=== PATIENT | male | born 1970 | race Caucasian/White ===

== ENCOUNTER 2017-06-19 09:12 | Emergency (ER) | payer BC, OTHER ==
[~2017-06-19] VITALS: Ht 180.3 cm; Wt 84.1 kg
[2017-06-19 09:12] VITALS: BP 168/112
[2017-06-19] MEDS ORDERED: PATA0.2S (09:26)
[2017-06-19] MEDS ORDERED: KETOROLAC 60 MG/2 ML VIAL (J1885) As Ordered ONE (09:28)
[2017-06-19] MEDS ORDERED: KETOROLAC 60 MG/2 ML VIAL (J1885) IM ONE (09:30)
--- NOTE | 2017-06-19 10:04 | REP ---
PA and lateral chest: Comparison is 02/16/2012. The lung hull are clear. The cardiac size is normal The gray, mediastinum, and bony thorax are unremarkable. Impression: Negative PA and lateral chest. Signed by Vince Harding MD 06/19/2017 09:55 A
[2017-06-19] MEDS ORDERED: NORCOTAB PO (10:19)
[2017-06-19] MEDS ORDERED: NORCO, ANEXSIA 5/325MG TABLET (HYDROcodone/ACETAMINOPHEN) PO ONE (10:30)
== END 2017-06-19 10:50 | disposition home or self-care (01) ==
LOC: M ED 09:12
DX: R07.9 Chest pain, unspecified (principal)
CPT/HCPCS: 71020; 96372; 99282; J1885

== ENCOUNTER 2017-08-05 11:58 | Emergency (ER) | payer OTHER ==
[~2017-08-05] VITALS: Ht 180.3 cm; Wt 86.4 kg
[~2017-08-05 11:58] MED LIST: NORCOTAB PO; PATA0.2S
[2017-08-05] MEDS ORDERED: MORPHINE 4 MG/ML 1ML SYRINGE As Ordered ONE (12:14)
[2017-08-05] MEDS ORDERED: ONDANSETRON 4MG/2ML VIAL (J2405) As Ordered ONE (12:14)
[2017-08-05] MEDS ORDERED: NS 1,000 ML IV ONE (12:15)
[2017-08-05] MEDS ORDERED: MORPHINE 4 MG/ML 1ML SYRINGE IV ONE ×2 (12:15→13:00)
[2017-08-05] MEDS ORDERED: ONDANSETRON 4MG/2ML VIAL (J2405) IV ONE ×2 (12:15→14:45)
[2017-08-05 12:35] LABS: BASO # 0.1 10^3/uL (0.0-0.2); BASO % 0.5 % (0.0-1.0); EOS # 0.1 10^3/uL (0.0-0.50); EOS % 0.5 % (0.0-3.0); IMMATURE GRANULOCYTE % 0.4 % (0-0); LYMPH % 10.5 % (24.0-44.0); MEAN CORPUSCULAR HEMOGLOBIN 31.5 pg (27.0-33.0); MEAN CORPUSCULAR HGB CONC 33.7 g/dl (32.0-36.5); MEAN CORPUSCULAR VOLUME 93.4 fl (80.0-96.0); MONO # 1.4 10^3/uL (0.0-0.8); MONO % 7.4 % (0.0-5.0); NEUTROPHILS # 15.1 10^3/uL (1.8-7.7); NEUTROPHILS % 80.7 % (36.0-66.0); PLATELET COUNT, AUTOMATED 280 10^3/uL (150-450); RED CELL DISTRIBUTION WIDTH 12.6 % (11.5-14.5); WHITE BLOOD COUNT 18.7 10^3/uL (4.0-10.0)
[2017-08-05 12:41] LABS: ALBUMIN 4.3 GM/DL (3.2-5.2); ALBUMIN/GLOBULIN RATIO 1.19 (1.00-1.93); ALKALINE PHOSPHATASE 93 U/L (45-117); ALT/SGPT 29 U/L (12-78); AMYLASE 79 U/L (25-115); ANION GAP 7 MEQ/L (8-16); AST/SGOT 18 U/L (7-37); BILIRUBIN,DIRECT 0.2 MG/DL (0.0-0.2); BILIRUBIN,TOTAL 0.6 MG/DL (0.2-1.0); BLOOD UREA NITROGEN 13 MG/DL (7-18); CALCIUM LEVEL 9.6 MG/DL (8.5-10.1); CARBON DIOXIDE LEVEL 27 MEQ/L (21-32); CHLORIDE LEVEL 106 MEQ/L (98-107); CREATININE FOR GFR 1.28 MG/DL (0.70-1.30); GLOMERULAR FILTRATION RATE > 60.0 (>60); GLUCOSE, FASTING 105 MG/DL (70-105); POTASSIUM SERUM 4.4 MEQ/L (3.5-5.1); SODIUM LEVEL 140 MEQ/L (136-145); TOTAL PROTEIN 7.9 GM/DL (6.4-8.2)
[2017-08-05] MEDS ORDERED: GASTROGRAFIN SOLUTION 30ML PO ONE (13:15)
[2017-08-05] MEDS ORDERED: GASTROGRAFIN SOLUTION 30ML (Q9963) PO ONE (13:45)
[2017-08-05] MEDS ORDERED: HYDROmorphone HCL 1 MG/ML SYRINGE (J1170) IV ONE (14:45)
[2017-08-05] MEDS ORDERED: ISOVUE-370 76% 100ML VIAL (Q9967) As Ordered ONE (14:51)
--- NOTE | 2017-08-05 15:37 | REP ---
Clinical: Lower abdominal pain with rectal bleeding. Technique: Axial contrast enhanced images from the lung bases to the pubic symphysis using oral and 100 ml Isovue 370 intravenous contrast material with coronal and sagittal re-formations. Comparison: 01/31/2016. Findings: Mural thickening and pericolonic inflammatory stranding involving the descending through rectosigmoid colon is compatible with infectious/inflammatory colitis. No free air, free fluid or drainable collection/abscess. The remainder of the small and large bowel is grossly unremarkable. There is no evidence for bowel obstruction or perforation. Liver, spleen, pancreas, gallbladder, bilateral adrenal glands and kidneys are normal. Pelvis demonstrates normal bladder and age appropriate prostate/seminal vesicles. No ascites. No adenopathy. Abdominal aorta and vasculature appears normal. Musculoskeletal structures are intact. Lung bases demonstrate mild posterior basilar dependent changes. Impression: Acute infectious/inflammatory colitis involving the descending and sigmoid colon. No bowel obstruction, perforation, fluid or drainable collection. Signed by Lewis Marin MD 08/05/2017 03:28 P
[2017-08-05] MEDS ORDERED: PERC5TAB12 PO (15:54)
[2017-08-05] MEDS ORDERED: PRED20TA PO (15:54)
[2017-08-05] MEDS ORDERED: ZOFR4TAB3 PO (15:54)
[2017-08-05] MEDS ORDERED: methylPREDNISolone INJ 125 MG/2 ML VIAL (J2930) IV ONE (16:00)
[2017-08-05 16:01] VITALS: BP 140/94
== END 2017-08-05 16:03 | disposition home or self-care (01) ==
LOC: M ED 11:58
DX: K52.9 Noninfective gastroenteritis and colitis, unspecified (principal); K51.911 Ulcerative colitis, unspecified with rectal bleeding; F17.210 Nicotine dependence, cigarettes, uncomplicated; Z87.19 Personal history of other diseases of the digestive system
CPT/HCPCS: 74177; 80048; 80076; 81001; 82150; 83690; 85025; 87507; 96374; 96375; 99284; J1170; J2405; J2930; Q9963; Q9967

== ENCOUNTER 2018-04-01 09:17 | Emergency (ER) | payer OTHER ==
[2018-04-01 09:36] LABS: BASO # 0.2 10^3/uL (0.0-0.2); BASO % 1.1 % (0.0-1.0); EOS # 0.4 10^3/uL (0.0-0.50); EOS % 3.3 % (0.0-3.0); HEMOGLOBIN 17.1 g/dl (13.5-17.5); IMMATURE GRANULOCYTE % 0.5 % (0-3.0); LYMPH # 3.5 10^3/uL (1.5-4.5); LYMPH % 26.5 % (24.0-44.0); MEAN CORPUSCULAR HEMOGLOBIN 31.5 pg (27.0-33.0); MEAN CORPUSCULAR HGB CONC 33.5 g/dl (32.0-36.5); MEAN CORPUSCULAR VOLUME 94.1 fl (80.0-96.0); MONO # 1.3 10^3/uL (0.0-0.8); MONO % 10.1 % (0.0-5.0); NEUTROPHILS # 7.7 10^3/uL (1.8-7.7); NEUTROPHILS % 58.5 % (36.0-66.0); PLATELET COUNT, AUTOMATED 279 10^3/uL (150-450); RED BLOOD COUNT 5.42 10^6/uL (4.30-6.10); RED CELL DISTRIBUTION WIDTH 12.8 % (11.5-14.5); WHITE BLOOD COUNT 13.1 10^3/uL (4.0-10.0)
[2018-04-01] MEDS: MORPHINE 4 MG/ML 1ML VIAL/SYRINGE (J2270) IV ×2 (09:41→11:10)
[2018-04-01] MEDS: NS 1,000 ML IV (09:42)
[2018-04-01] MEDS: ONDANSETRON 4MG/2ML VIAL (J2405) IV (09:42)
[2018-04-01 10:11] LABS: ALBUMIN/GLOBULIN RATIO 1.03 (1.00-1.93); ALKALINE PHOSPHATASE 102 U/L (45-117); ALT/SGPT 27 U/L (12-78); ANION GAP 7 MEQ/L (8-16); AST/SGOT 18 U/L (7-37); BILIRUBIN,DIRECT 0.1 MG/DL (0.0-0.2); BILIRUBIN,TOTAL 0.5 MG/DL (0.2-1.0); BLOOD UREA NITROGEN 18 MG/DL (7-18); CALCIUM LEVEL 9.3 MG/DL (8.5-10.1); CARBON DIOXIDE LEVEL 26 MEQ/L (21-32); CHLORIDE LEVEL 108 MEQ/L (98-107); CREATININE FOR GFR 1.34 MG/DL (0.70-1.30); GLOMERULAR FILTRATION RATE > 60.0 (>60); GLUCOSE, FASTING 99 MG/DL (70-100); LIPASE 323 U/L (73-393); POTASSIUM SERUM 4.8 MEQ/L (3.5-5.1); SODIUM LEVEL 141 MEQ/L (136-145); TOTAL PROTEIN 7.9 GM/DL (6.4-8.2)
[2018-04-01] MEDS: GASTROGRAFIN SOLUTION 30ML PO ×2 (10:50→11:20)
[2018-04-01] MEDS ORDERED: ISOVUE-370 76% 100ML VIAL (Q9967) As Ordered ×2 (11:58→12:01)
== END 2018-04-01 13:34 | disposition home or self-care (01) ==
LOC: M ED 09:17
DX: K51.90 Ulcerative colitis, unspecified, without complications (principal); F17.210 Nicotine dependence, cigarettes, uncomplicated
CPT/HCPCS: J2270

== ENCOUNTER 2018-09-09 17:20 | Emergency (ER) | payer OTHER ==
[~2018-09-09] VITALS: Ht 180.3 cm; Wt 86.4 kg
[~2018-09-09 17:20] MED LIST changes: +PERC5TAB12 PO; +PRED20TA PO; +ZOFR4TAB14 PO
[2018-09-09] MEDS ORDERED: MESA1.2T (17:26)
[2018-09-09] MEDS ORDERED: NORCOTAB PO (17:56)
[2018-09-09] MEDS ORDERED: BACL10TA2 PO (17:56)
[2018-09-09 18:10] VITALS: BP 161/104
== END 2018-09-09 18:12 | disposition home or self-care (01) ==
LOC: M ED 17:20
DX: S46.011A Strain of muscle(s) and tendon(s) of the rotator cuff of right shoulder, initial encounter (principal); X50.9XXA Other and unspecified overexertion or strenuous movements or postures, initial encounter; Y92.89 Other specified places as the place of occurrence of the external cause; Y99.0 Civilian activity done for income or pay

== ENCOUNTER → 2019-05-24 | Outpatient (REF) | payer OTHER ==
[~2019-05-24] MED LIST changes: +BACL10TA2 PO; +HYDR-3715 PO; +MESA1.2T; -NORCOTAB PO
[2019-05-24 15:19] LABS: PERCENT SATURATION 27.8 % (19.7-50.0)
[2019-05-24 19:11] LABS: C REACTIVE PROTEIN QUANTITATIV 0.69 MG/DL (0.00-0.30)
[2019-05-28 00:06] LABS: ANCA-ATYPICAL <1:20 titer (Neg:<1:20); CYTOPLASMIC NEUTROP AB ANCA-C <1:20 titer (Neg:<1:20); PERINUCLEAR AB ANCA-P <1:20 titer (Neg:<1:20)
== END ==
LOC: M LAB REF 13:49
PROVIDERS: ATTEND Internal Medicine
DX: D45 Polycythemia vera (principal)

== ENCOUNTER → 2019-06-25 | Outpatient (REF) | payer OTHER | LOC: M LAB REF 16:56 | PROVIDERS: ATTEND Internal Medicine | DX: K51.90 Ulcerative colitis, unspecified, without complications (principal) ==

== ENCOUNTER → 2019-07-25 | Outpatient (REF) | payer OTHER | LOC: M LAB REF 08:36 | PROVIDERS: ATTEND Internal Medicine Gastroenterology | DX: K51.90 Ulcerative colitis, unspecified, without complications (principal) ==

== ENCOUNTER → 2019-07-26 | Outpatient (CLI) | payer OTHER ==
--- NOTE | 2019-07-26 08:59 | REP ---
Right upper quadrant sonography: History: Ulcerative colitis. Comparison CT study April 01, 2018. Sonographic findings: Scan quality is inhibited by bowel gas. Scanning through right upper quadrant demonstrates normal sized thin-walled gallbladder without evidence of stone or polyp. Common bile duct is normal measuring 0.3 cm in greatest diameter. No focal hepatic lesion is seen. Pancreas is largely obscured by abdominal gas. There is no evidence of ascites or right renal abnormality. The right kidney measures 9.7 x 5.3 x 5.6 cm. Normal caliber aorta is seen. Impression: Negative right upper quadrant sonography. Electronically Signed by Mike Parsons MD 07/26/2019 09:15 A
== END ==
LOC: M RAD 06:47
PROVIDERS: ATTEND Internal Medicine Gastroenterology
DX: K51.90 Ulcerative colitis, unspecified, without complications (principal)

== ENCOUNTER → 2020-03-31 | Outpatient (CLI) | payer OTHER ==
[~2020-03-31] MED LIST changes: +HUMI40IN2 SQ; +NORC1TAB7 PO; +OLOP2.5D3; -PATA0.2S; +VALS1TAB66 PO
== END ==
LOC: M LABSMTC 12:20
PROVIDERS: ATTEND Pediatrics
DX: Z03.818 Encounter for observation for suspected exposure to other biological agents ruled out (principal); Z11.59 Encounter for screening for other viral diseases

== ENCOUNTER → 2020-05-24 | Outpatient (CLI) | payer OTHER ==
--- NOTE | 2020-06-13 13:20 | REP ---
THORACIC SPINE DATE: 05/24/2020 at 4:46 p.m. CLINICAL: Pain. TECHNIQUE: AP, lateral, swimmer's views. FINDINGS: Alignment and kyphosis maintained. Vertebral bodies are intact. No acute fracture/compression injury or subluxation. No significant degenerative changes. IMPRESSION: Age-appropriate thoracic spine radiographs. [facility]ALTHGilberto
== END ==
LOC: M RAD 16:43
PROVIDERS: ATTEND Emergency Medicine
DX: R52 Pain, unspecified (principal)

== ENCOUNTER 2020-06-17 07:15 | Emergency (ER) | payer OTHER ==
[~2020-06-17] VITALS: Ht 180.3 cm; Wt 88.6 kg
[~2020-06-17 07:15] MED LIST changes: -HUMI40IN2 SQ; -NORC1TAB7 PO; -VALS1TAB66 PO
[2020-06-17] MEDS ORDERED: NS 1,000 ML IV ONE (07:30)
[2020-06-17] MEDS ORDERED: ONDANSETRON 4MG/2ML VIAL IV ONE (07:30)
[2020-06-17] MEDS ORDERED: MORPHINE 4 MG/ML 1ML VIAL/SYRINGE (J2270) IV ONE (07:30)
[2020-06-17] MEDS ORDERED: VALS1TAB66 PO (07:48)
[2020-06-17] MEDS ORDERED: HUMI40IN2 SQ (07:48)
[2020-06-17 08:01] LABS: BASO # 0.1 10^3/uL (0.0-0.2); BASO % 0.9 % (0.0-1.0); EOS # 0.4 10^3/uL (0.0-0.5); EOS % 3.2 % (0.0-3.0); HEMATOCRIT 48.5 % (42.0-52.0); HEMOGLOBIN 16.2 g/dl (13.5-17.5); LYMPH # 2.8 10^3/uL (1.5-5.0); LYMPH % 23.1 % (24.0-44.0); MEAN CORPUSCULAR HEMOGLOBIN 31.7 pg (27.0-33.0); MEAN CORPUSCULAR HGB CONC 33.4 g/dl (32.0-36.5); MEAN CORPUSCULAR VOLUME 94.9 fl (80.0-96.0); MONO # 1.3 10^3/uL (0.0-0.8); MONO % 10.4 % (0.0-5.0); NEUTROPHILS # 7.5 10^3/uL (1.5-8.5); NEUTROPHILS % 62.1 % (36.0-66.0); PLATELET COUNT, AUTOMATED 235 10^3/uL (150-450); RED BLOOD COUNT 5.11 10^6/uL (4.30-6.10)
[2020-06-17 08:24] LABS: ALT/SGPT 20 U/L (12-78); BILIRUBIN,DIRECT < 0.1 MG/DL (0.0-0.2); BILIRUBIN,TOTAL 0.3 MG/DL (0.2-1.0); LIPASE 145 U/L (73-393); TOTAL PROTEIN 7.6 GM/DL (6.4-8.2)
[2020-06-17] MEDS ORDERED: ISOVUE-370 76% 100ML VIAL As Ordered ONE (08:27)
--- NOTE | 2020-06-17 08:56 | REPVR ---
PROCEDURE INFORMATION: Exam: CT Abdomen And Pelvis With Contrast Exam date and time: 06/17/2020 8:30 AM Age: 49 years old Clinical indication: Abdominal pain; Localized; Lower; Additional info: Abd pain, HX of ulcerative colitis TECHNIQUE: Imaging protocol: Computed tomography of the abdomen and pelvis with intravenous contrast. Radiation optimization: All CT scans at this facility use at least one of these dose optimization techniques: automated exposure control; mA and/or kV adjustment per patient size (includes targeted exams where dose is matched to clinical indication); or iterative reconstruction. Contrast material: ISOVUE 370; Contrast volume: 100 ml; Contrast route: INTRAVENOUS (IV); COMPARISON: CT ABD/PEL W/IV ORAL CONTRAS 04/01/2018 11:56 AM FINDINGS: Lungs: Dependent atelectasis posterior lower lungs. Focus of slightly nodular scarring right middle lobe by lobular in configuration measuring 0.7 cm and is incompletely included superiorly. Liver: Normal. No mass. Gallbladder and bile ducts: Normal. No calcified stones. No ductal dilation. Pancreas: Normal. No ductal dilation. Spleen: Normal. No splenomegaly. Adrenals: Normal. No mass. Kidneys and ureters: Normal. No hydronephrosis. Stomach and bowel: Diffuse fluid-filled small bowel without extreme dilatation. Small bowel segment in the left abdomen which may indicate mucosal thickening or edema. Wall thickening of mid to distal transverse colon and lung segment of sigmoid colon. There is non distension and mild wall thickening and loss of haustral pattern of the left colon. There are numerous scattered colonic diverticuli. No pericolonic fluid. Appendix: No evidence of appendicitis. Intraperitoneal space: Unremarkable. No free air. No significant fluid collection. Vasculature: Unremarkable. No abdominal aortic aneurysm. Lymph nodes: Unremarkable. No enlarged lymph nodes. Urinary bladder: Unremarkable as visualized. Reproductive: Unremarkable as visualized. Bones/joints: Mild degenerative change of the spine. Sacroiliac joints are unremarkable. Soft tissues: Unremarkable. Other findings: Focal possible high-grade narrowing at the proximal celiac trunk. IMPRESSION: 1. Rather prominent areas of involvement of the colon suggesting nonspecific colitis of possible infectious or inflammatory etiologies and could be consistent with the clinical history of ulcerative colitis. Findings within the descending and sigmoid colon are similar to the prior CT of 04/01/2018. 2. Mild fluid distended and mucosal accentuation of small bowel segments left abdomen could not exclude focal enteritis or reactive ileus. 3. Possible high-grade stenosis of the proximal celiac trunk. Further follow-up assessment with CTA aorta and branching vasculature is recommended. Electronically signed by: Nancy Moon On 06/17/2020 08:56:01 AM
[2020-06-17] MEDS ORDERED: PRED20TA PO (09:12)
[2020-06-17] MEDS ORDERED: NORC1TAB7 PO ×2 (09:12→09:13)
[2020-06-17 09:23] VITALS: BP 139/104
--- NOTE | 2020-06-19 07:18 | ED PDOC ---
Post-Departure Follow-Up dr hathaway and dr castrejon faxed formal report of ct abd/p for fu Ke Ring MD Jun 19, 2020 07:18
== END 2020-06-17 09:27 | disposition home or self-care (01) ==
LOC: M ED 07:15
DX: K51.90 Ulcerative colitis, unspecified, without complications (principal); I10 Essential (primary) hypertension; F17.200 Nicotine dependence, unspecified, uncomplicated; Z79.899 Other long term (current) drug therapy
CPT/HCPCS: 36415; 74177; 80047; 80076; 83605; 83690; 85025; 96361; 96374; 96375; 99284; J2270; J2405; Q9967

== ENCOUNTER → 2020-07-03 | Outpatient (CLI) | payer OTHER ==
[~2020-07-03] MED LIST changes: +HUMI40IN2 SQ; +ISOVUE-370 76% 100ML VIAL As Ordered ONE; +NORC1TAB7 PO; +VALS1TAB66 PO
--- NOTE | 2020-07-03 13:21 | REP ---
INDICATION: ABN IMAGING CT CELIAC ARTERY STENOSIS. COMPARISON: 06/17/2028, 04/01/2018, 08/05/2017 TECHNIQUE: Axial contrast-enhanced images using angiographic technique with images obtained in the arterial phase of enhancement from the lung bases to the pubic symphysis with multiplanar reformations. 100 cc Isovue 370 intravenous contrast material administered without complication. This CT examination was performed using the following dose reduction techniques: Automated exposure control, adjustment of mA and/or kv according to the patient's size, and use of iterative reconstruction technique. FINDINGS: The proximal portion of the celiac axis appears to have a somewhat narrowed, J-shaped appearance conforming below the arcuate ligament with subsequent normal diameter beyond the level of the ligament raising superiorly and anteriorly to form normal branch vessels. These findings are unchanged through 2017, extremely subtle, and should be correlated clinically. The remainder of the vascular structures including aorta, superior mesenteric artery, bilateral renal arteries, inferior mesenteric artery and iliac arteries are normal. No significant atherosclerotic changes are appreciated and no evidence for aneurysm, stenosis, or occlusion is otherwise identified. Liver, spleen, pancreas, gallbladder, bilateral adrenal glands and kidneys are normal. The enteric system is without obstruction. There is mucosal thickening involving the distal sigmoid colon to the level of the rectosigmoid which should be correlated clinically. Scattered diverticula noted without acute diverticulitis. Pelvis demonstrates normal bladder and age-appropriate prostate/seminal vesicles. No ascites. No free air. No adenopathy. Lung bases are clear. Musculoskeletal structures are intact. IMPRESSION: 1. The appearance of the celiac axis suggests mild compression by the overlying arcuate ligament. 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 2. Mucosal thickening of the distal sigmoid to rectosigmoid raising the possibility of underlying inflammatory bowel disease. 3. Scattered diverticula without acute diverticulitis. <Electronically signed by Lewis Marin > 07/03/20 [id number]
== END ==
LOC: M RAD 11:20
PROVIDERS: ATTEND Internal Medicine
DX: I77.4 Celiac artery compression syndrome (principal)
CPT/HCPCS: 74174; Q9967

== ENCOUNTER → 2020-09-10 | Outpatient (REF) ==
[~2020-09-10] MED LIST changes: -ISOVUE-370 76% 100ML VIAL As Ordered ONE
== END ==
LOC: M EMP 09:54
PROVIDERS: ATTEND Pediatrics
DX: Z20.828 Contact with and (suspected) exposure to other viral communicable diseases (principal)

== ENCOUNTER → 2021-03-14 | Outpatient (REF) | LOC: M EMP 09:07 | PROVIDERS: ATTEND Family Medicine | DX: Z11.52 Encounter for screening for COVID-19 (principal) ==

== ENCOUNTER 2021-06-11 15:35 | Emergency (ER) | payer OTHER ==
[2021-06-11] MEDS ORDERED: FAMO1TAB11 (16:02)
[2021-06-11] MEDS ORDERED: MORPHINE 4 MG/ML 1ML VIAL/SYRINGE (J2270) IV PRN (16:20)
[2021-06-11] MEDS ORDERED: NS 1,000 ML IV ONE (16:20)
[2021-06-11] MEDS ORDERED: ONDANSETRON 4MG/2ML VIAL IV ONE (16:20)
[2021-06-11 17:04] LABS: BASO # 0.1 10^3/uL (0.0-0.2); BASO % 0.6 % (0.0-1.0); EOS # 0.1 10^3/uL (0.0-0.5); EOS % 0.4 % (0.0-3.0); HEMATOCRIT 49.8 % (42.0-52.0); HEMOGLOBIN 16.5 g/dl (13.5-17.5); LYMPH # 3.3 10^3/uL (1.5-5.0); LYMPH % 20.6 % (24.0-44.0); MEAN CORPUSCULAR HEMOGLOBIN 32.5 pg (27.0-33.0); MEAN CORPUSCULAR HGB CONC 33.1 g/dl (32.0-36.5); MONO # 0.9 10^3/uL (0.0-0.8); MONO % 5.4 % (2.0-8.0); NEUTROPHILS # 11.6 10^3/uL (1.5-8.5); NEUTROPHILS % 72.4 % (36.0-66.0); PLATELET COUNT, AUTOMATED 300 10^3/uL (150-450); RED BLOOD COUNT 5.08 10^6/uL (4.30-6.10)
[2021-06-11] MEDS: GASTROGRAFIN SOLUTION 30ML PO SCH ×2 (17:34→18:02)
[2021-06-11 17:37] LABS: ERYTHROCYTE SEDIMENTATION RATE 3 mm/hr (0-15)
[2021-06-11 17:40] LABS: ALBUMIN 4.1 GM/DL (3.2-5.2); BILIRUBIN,DIRECT 0.1 MG/DL (0.0-0.2); BILIRUBIN,TOTAL 0.4 MG/DL (0.2-1.0); C REACTIVE PROTEIN QUANTITATIV 0.3 MG/DL (0.00-0.30); CALCIUM LEVEL 9.9 MG/DL (8.5-10.1); CREATININE FOR GFR 1.48 MG/DL (0.70-1.30); TOTAL PROTEIN 7.7 GM/DL (6.4-8.2)
[2021-06-11 18:31] VITALS: BP 108/56
[2021-06-11] MEDS ORDERED: ISOVUE-370 76% 100ML VIAL As Ordered ONE (18:49)
[2021-06-11] MEDS ORDERED: NORCO, ANEXSIA 5/325MG TABLET (HYDROcodone/ACETAMINOPHEN) PO ONE (19:25)
--- NOTE | 2021-06-11 19:42 | REPVR ---
PROCEDURE INFORMATION: Exam: CT Abdomen And Pelvis With Contrast Exam date and time: 06/11/2021 6:48 PM Age: 50 years old Clinical indication: Abdominal pain; Additional info: Lower abdominal pain; HX of uc TECHNIQUE: Imaging protocol: Computed tomography of the abdomen and pelvis with contrast. Radiation optimization: All CT scans at this facility use at least one of these dose optimization techniques: automated exposure control; mA and/or kV adjustment per patient size (includes targeted exams where dose is matched to clinical indication); or iterative reconstruction. Contrast material: ISOVUE 370; Contrast volume: 100 ml; Contrast route: INTRAVENOUS (IV); COMPARISON: CT ABD/PEL W/IV CONTRAST ONLY 06/17/2020 8:27 AM FINDINGS: Liver: There is a diffuse decrease in hepatic parenchymal density, consistent with steatosis. Gallbladder and bile ducts: The gallbladder is incompletely distended. This is most likely related to incomplete fasting. Clinical correlation to exclude gallbladder pathology suggested. Pancreas: Normal. No ductal dilation. Spleen: Normal. No splenomegaly. Adrenal glands: Normal. No mass. Kidneys and ureters: Normal. No hydronephrosis. Stomach and bowel: Boggy appearance and wall thickening of the distal transverse colon to the rectum with diffuse wall thickening, luminal narrowing, and mild pericolonic inflammation, findings consistent with acute segmental colitis. No abscess demonstrated. Mild diverticulosis is present in the distal left colon. No diverticulitis. Appendix: No evidence of appendicitis. Intraperitoneal space: Unremarkable. No free air. No significant fluid collection. Vasculature: Unremarkable. No abdominal aortic aneurysm. Lymph nodes: Unremarkable. No enlarged lymph nodes. Urinary bladder: Unremarkable as visualized. Reproductive: The prostate gland demonstrates mild hyperplasia. Bones/joints: Unremarkable. No acute fracture. Soft tissues: Unremarkable. IMPRESSION: 1. The gallbladder is incompletely distended. This is most likely related to incomplete fasting. Clinical correlation to exclude gallbladder pathology suggested. 2. There is a diffuse decrease in hepatic parenchymal density, consistent with steatosis. 3. Boggy appearance and wall thickening of the distal transverse colon to the rectum with diffuse wall thickening, luminal narrowing, and mild pericolonic inflammation, findings consistent with acute segmental colitis. No abscess demonstrated. 4. Mild prostatic hyperplasia. 5. Mild diverticulosis is present in the distal left colon. No diverticulitis. Electronically signed by: Bernard Ceja On 06/11/2021 19:41:42 PM
[2021-06-11] MEDS ORDERED: methylPREDNISolone 125MG 2ML VIAL IV ONE (20:00)
[2021-06-11] MEDS ORDERED: NORCO 5/325MG TABLET (BULK FOR ED) PO ONE (20:00)
[2021-06-11] MEDS ORDERED: AUGMENTIN 875 MG TAB PO ONE (20:00)
[2021-06-11] MEDS ORDERED: ONDA4TAB6 PO (20:01)
[2021-06-11] MEDS ORDERED: HYDR-3715 PO (20:01)
[2021-06-11] MEDS ORDERED: AUGM875T28 PO (20:01)
[2021-06-11] MEDS ORDERED: PRED10TA2 PO (20:01)
--- NOTE | 2021-06-14 10:36 | ED PDOC ---
Post-Departure Follow-Up radiology report faxed to Sasha Epstein Sarah MD Jun 14, 2021 10:36
== END 2021-06-11 20:23 | disposition home or self-care (01) ==
LOC: M ED 15:35
DX: K50.10 Crohn's disease of large intestine without complications (principal); I10 Essential (primary) hypertension; K21.9 Gastro-esophageal reflux disease without esophagitis; Z79.899 Other long term (current) drug therapy; F17.210 Nicotine dependence, cigarettes, uncomplicated
CPT/HCPCS: 74177; 80048; 80076; 83605; 83690; 85025; 85652; 86140; 87505; 93041; 96361; 96374; 96375; 99284; J2270; J2405; J2930; Q9963; Q9967

== ENCOUNTER → 2021-07-02 | Outpatient (REF) | payer BC ==
[~2021-07-02] MED LIST changes: +AUGM875T28 PO; +FAMO1TAB11; +ONDA4TAB6 PO; +PRED10TA2 PO
[2021-07-05 08:09] LABS: LDL DIRECT 107 mg/dL (0-99)
== END ==
LOC: M LAB REF 12:21
PROVIDERS: ATTEND Internal Medicine
DX: E78.5 Hyperlipidemia, unspecified (principal)

== ENCOUNTER 2021-07-06 08:35 | Outpatient (CLI) | payer BC, OTHER, SELFPAY ==
[~2021-07-06] VITALS: Ht 180.3 cm; Wt 96.0 kg
[~2021-07-06 08:35] MED LIST changes: +ACETAMINOPHEN TAB 650MG DOSE (2X325MG) PO ONE; +VEDOLIZUMAB 300 MG in NS 250 ML IV ONE; +diphenhydrAMINE 25MG CAP PO ONE
[2021-07-06 08:40] VITALS: BP 127/96
[2021-07-06 08:56] VITALS: BP 127/96
[2021-07-06 09:30] VITALS: BP 135/94
== END 2021-07-06 09:30 | disposition home or self-care (01) ==
LOC: M INFU 08:35
PROVIDERS: ATTEND Internal Medicine Gastroenterology
DX: K51.90 Ulcerative colitis, unspecified, without complications (principal)
CPT/HCPCS: 96365; J3380

== ENCOUNTER 2021-07-20 08:22 | Outpatient (CLI) | payer BC, OTHER ==
[~2021-07-20] VITALS: Ht 180.3 cm; Wt 96.0 kg
[2021-07-20 08:30] VITALS: BP 128/86
[2021-07-20 09:40] VITALS: BP_SYST 128; BP_SYST 132; BP_DIAS 84; BP_DIAS 86
== END 2021-07-20 09:40 | disposition home or self-care (01) ==
LOC: M INFU 08:22
PROVIDERS: ATTEND Internal Medicine Gastroenterology
DX: K51.90 Ulcerative colitis, unspecified, without complications (principal)
CPT/HCPCS: 96365; J3380

== ENCOUNTER 2021-08-17 08:38 | Outpatient (CLI) | payer BC, OTHER ==
[~2021-08-17] VITALS: Ht 180.3 cm; Wt 96.0 kg
[2021-08-17 08:40] VITALS: BP 145/89
[2021-08-17 10:20] VITALS: BP 154/84
== END 2021-08-17 10:25 | disposition home or self-care (01) ==
LOC: M INFU 08:38
PROVIDERS: ATTEND Internal Medicine Gastroenterology
DX: K51.919 Ulcerative colitis, unspecified with unspecified complications (principal)
CPT/HCPCS: 96365; J3380

== ENCOUNTER 2021-10-12 08:22 | Outpatient (CLI) | payer BC, OTHER ==
[~2021-10-12] VITALS: Ht 180.3 cm; Wt 96.0 kg
[~2021-10-12 08:22] MED LIST changes: +ACETAMINOPHEN TAB 650MG DOSE (2X325MG) PO ONE; +VEDOLIZUMAB 300 MG in NS 250 ML IV ONE; +diphenhydrAMINE 25MG CAP PO ONE
[2021-10-12 08:50] VITALS: BP 141/89
[2021-10-12 09:23] VITALS: BP 141/89
[2021-10-12 09:44] VITALS: BP 164/88
== END 2021-10-12 09:45 | disposition home or self-care (01) ==
LOC: M INFU 08:22
PROVIDERS: ATTEND Internal Medicine Gastroenterology
DX: K51.919 Ulcerative colitis, unspecified with unspecified complications (principal)
CPT/HCPCS: 96365; J3380

== ENCOUNTER → 2021-10-12 | Outpatient (CLI) | payer BC ==
[~2021-10-12] MED LIST changes: -ACETAMINOPHEN TAB 650MG DOSE (2X325MG) PO ONE; -VEDOLIZUMAB 300 MG in NS 250 ML IV ONE; -diphenhydrAMINE 25MG CAP PO ONE
== END ==
LOC: M RAD 08:23
PROVIDERS: ATTEND Internal Medicine
DX: M54.9 Dorsalgia, unspecified (principal)

== ENCOUNTER 2021-12-07 08:14 | Outpatient (CLI) | payer BC ==
[~2021-12-07] VITALS: Ht 180.3 cm; Wt 96.0 kg
[2021-12-07 08:20] VITALS: BP 142/80
[2021-12-07 09:45] VITALS: BP 128/82
== END 2021-12-07 09:45 | disposition home or self-care (01) ==
LOC: M INFU 08:14
PROVIDERS: ATTEND Internal Medicine Gastroenterology
DX: K51.919 Ulcerative colitis, unspecified with unspecified complications (principal)
CPT/HCPCS: 96365; J3380

== ENCOUNTER 2022-02-01 08:06 | Outpatient (CLI) | payer BC ==
[~2022-02-01] VITALS: Ht 180.3 cm; Wt 9.0 kg
[2022-02-01 08:19] VITALS: BP 144/96
[2022-02-01 09:20] VITALS: BP 128/87
== END 2022-02-01 09:20 | disposition home or self-care (01) ==
LOC: M INFU 08:06
PROVIDERS: ATTEND Internal Medicine Gastroenterology
DX: K51.90 Ulcerative colitis, unspecified, without complications (principal)
CPT/HCPCS: 96365; J3380

== ENCOUNTER 2022-03-18 09:34 | Emergency (ER) | payer BC ==
[~2022-03-18 09:34] MED LIST changes: -ACETAMINOPHEN TAB 650MG DOSE (2X325MG) PO ONE; -VEDOLIZUMAB 300 MG in NS 250 ML IV ONE; -diphenhydrAMINE 25MG CAP PO ONE
[2022-03-18] MEDS ORDERED: NS 1,000 ML IV SCH (09:45)
[2022-03-18] MEDS ORDERED: MORPHINE 4 MG/ML 1ML VIAL/SYRINGE IV PRN (09:50)
[2022-03-18] MEDS ORDERED: ONDANSETRON 4MG 2ML VIAL IV ONE (09:50)
[2022-03-18 10:09] LABS: BASO # 0.1 10^3/uL (0.0-0.2); BASO % 0.6 % (0.0-1.0); EOS # 0.1 10^3/uL (0.0-0.5); EOS % 0.5 % (0.0-3.0); HEMATOCRIT 49.3 % (42.0-52.0); HEMOGLOBIN 16.5 g/dl (13.5-17.5); LYMPH # 1.4 10^3/uL (1.5-5.0); MEAN CORPUSCULAR HEMOGLOBIN 32.6 pg (27.0-33.0); MEAN CORPUSCULAR HGB CONC 33.5 g/dl (32.0-36.5); MEAN CORPUSCULAR VOLUME 97.4 fl (80.0-96.0); MONO # 0.4 10^3/uL (0.0-0.8); MONO % 2.4 % (2.0-8.0); NEUTROPHILS # 15.2 10^3/uL (1.5-8.5); PLATELET COUNT, AUTOMATED 298 10^3/uL (150-450); RED BLOOD COUNT 5.06 10^6/uL (4.30-6.10); WHITE BLOOD COUNT 17.3 10^3/uL (4.0-10.0)
[2022-03-18 10:36] LABS: ALBUMIN 4.1 GM/DL (3.2-5.2); ALT/SGPT 27 U/L (12-78); BILIRUBIN,DIRECT 0.1 MG/DL (0.0-0.2); BILIRUBIN,TOTAL 0.5 MG/DL (0.2-1.0); BLOOD UREA NITROGEN 15 MG/DL (7-18); CALCIUM LEVEL 9.5 MG/DL (8.5-10.1); CARBON DIOXIDE LEVEL 26 MEQ/L (21-32); CHLORIDE LEVEL 108 MEQ/L (98-107); CREATININE FOR GFR 1.21 MG/DL (0.70-1.30); GLOMERULAR FILTRATION RATE > 60.0 (>60); GLUCOSE, FASTING 108 MG/DL (70-100); LIPASE 222 U/L (73-393); POTASSIUM SERUM 4.8 MEQ/L (3.5-5.1); SODIUM LEVEL 138 MEQ/L (136-145); TOTAL PROTEIN 7.9 GM/DL (6.4-8.2)
[2022-03-18 11:02] VITALS: BP 166/106
[2022-03-18] MEDS ORDERED: PERC5TAB12 PO (11:04)
[2022-03-18] MEDS ORDERED: PRED10TA2 PO (11:05)
== END 2022-03-18 11:29 | disposition home or self-care (01) ==
LOC: M ED 09:34
DX: K51.90 Ulcerative colitis, unspecified, without complications (principal); F17.200 Nicotine dependence, unspecified, uncomplicated; Z79.899 Other long term (current) drug therapy
CPT/HCPCS: 80048; 80076; 83690; 85025; 96361; 96374; 96375; 99284; J2270; J2405

== ENCOUNTER 2022-03-29 08:00 | Outpatient (CLI) | payer BC ==
[~2022-03-29] VITALS: Ht 180.3 cm; Wt 91.8 kg
[~2022-03-29 08:00] MED LIST changes: +ACETAMINOPHEN TAB 650MG DOSE (2X325MG) PO ONE; +VEDOLIZUMAB 300 MG in NS 250 ML IV ONE; +diphenhydrAMINE 25MG CAP PO ONE
[2022-03-29 08:05] VITALS: BP 129/79
[2022-03-29 09:25] VITALS: BP 129/79
== END 2022-03-29 09:25 | disposition home or self-care (01) ==
LOC: M INFU 08:00
PROVIDERS: ATTEND Internal Medicine Gastroenterology
DX: K51.90 Ulcerative colitis, unspecified, without complications (principal)
CPT/HCPCS: 96365; J3380

== ENCOUNTER → 2022-06-06 | Outpatient (REF) ==
[~2022-06-06] MED LIST changes: -ACETAMINOPHEN TAB 650MG DOSE (2X325MG) PO ONE; -VEDOLIZUMAB 300 MG in NS 250 ML IV ONE; -diphenhydrAMINE 25MG CAP PO ONE
== END ==
LOC: M LABSMTC 10:06
PROVIDERS: ATTEND Family Medicine
DX: Z11.52 Encounter for screening for COVID-19 (principal)

== ENCOUNTER 2022-07-19 06:22 | Outpatient (CLI) | payer BC ==
[~2022-07-19] VITALS: Ht 180.3 cm; Wt 96.0 kg
[2022-07-19 07:25] VITALS: BP 118/73
[2022-07-19] MEDS ORDERED: VEDOLIZUMAB 300 MG in NS 250 ML IV ONE (08:00)
[2022-07-19] MEDS ORDERED: diphenhydrAMINE 25MG CAP PO ONE (08:00)
[2022-07-19] MEDS ORDERED: ACETAMINOPHEN TAB 650MG DOSE (2X325MG) PO ONE (08:00)
[2022-07-19 08:30] VITALS: BP 142/84
== END 2022-07-19 08:30 | disposition home or self-care (01) ==
LOC: M INFU 06:22
PROVIDERS: ATTEND Internal Medicine Gastroenterology
DX: K51.90 Ulcerative colitis, unspecified, without complications (principal)
CPT/HCPCS: 36592; 96365; J3380

== ENCOUNTER 2022-09-13 07:50 | Outpatient (CLI) | payer BC ==
[~2022-09-13] VITALS: Ht 177.8 cm; Wt 96.0 kg
[2022-09-13 07:50] VITALS: BP 123/85
[2022-09-13] MEDS ORDERED: VEDOLIZUMAB 300 MG in NS 250 ML IV ONE (08:30)
[2022-09-13] MEDS ORDERED: ACETAMINOPHEN TAB 650MG DOSE (2X325MG) PO ONE (08:30)
[2022-09-13] MEDS ORDERED: diphenhydrAMINE 25MG CAP PO ONE (08:30)
[2022-09-13 08:52] VITALS: BP 131/79
== END 2022-09-13 09:00 | disposition home or self-care (01) ==
LOC: M INFU 07:50
PROVIDERS: ATTEND Internal Medicine Gastroenterology
DX: K51.90 Ulcerative colitis, unspecified, without complications (principal)
CPT/HCPCS: 96365; J3380

== ENCOUNTER → 2022-11-04 | Outpatient (REF) ==
[2022-11-04 13:58] LABS: RSV AMPLIFICATION NEGATIVE (NEGATIVE)
== END ==
LOC: M LABSMTC 11:18
PROVIDERS: ATTEND Family Medicine
DX: Z00.00 Encounter for general adult medical examination without abnormal findings (principal)

== ENCOUNTER 2022-11-08 08:40 | Outpatient (CLI) | payer BC ==
[~2022-11-08] VITALS: Ht 175.3 cm; Wt 96.0 kg
[2022-11-08 08:40] VITALS: BP 129/80
[~2022-11-08 08:40] MED LIST changes: +ACETAMINOPHEN TAB 650MG DOSE (2X325MG) PO ONE; +VEDOLIZUMAB 300 MG in NS 250 ML IV ONE; +diphenhydrAMINE 25MG CAP PO ONE
[2022-11-08 10:00] VITALS: BP 120/73
== END 2022-11-08 10:00 | disposition home or self-care (01) ==
LOC: M INFU 08:40
PROVIDERS: ATTEND Internal Medicine Gastroenterology
DX: K51.90 Ulcerative colitis, unspecified, without complications (principal)
CPT/HCPCS: 96365; J3380

== ENCOUNTER 2023-01-03 08:05 | Outpatient (CLI) | payer BC ==
[~2023-01-03] VITALS: Ht 182.9 cm; Wt 96.0 kg
[~2023-01-03 08:05] MED LIST changes: -ACETAMINOPHEN TAB 650MG DOSE (2X325MG) PO ONE; -VEDOLIZUMAB 300 MG in NS 250 ML IV ONE; -diphenhydrAMINE 25MG CAP PO ONE
[2023-01-03 08:10] VITALS: BP 129/72
[2023-01-03] MEDS ORDERED: ACETAMINOPHEN TAB 650MG DOSE (2X325MG) PO ONE (08:30)
[2023-01-03] MEDS ORDERED: VEDOLIZUMAB 300 MG in NS 250 ML IV ONE (08:30)
[2023-01-03] MEDS ORDERED: diphenhydrAMINE 25MG CAP PO ONE (08:30)
== END 2023-01-03 09:15 ==
LOC: M INFU 08:05
PROVIDERS: ATTEND Internal Medicine Gastroenterology
DX: K51.90 Ulcerative colitis, unspecified, without complications (principal)
CPT/HCPCS: 96365; J3380

== ENCOUNTER 2023-02-28 08:32 | Outpatient (CLI) | payer BC ==
[~2023-02-28] VITALS: Ht 180.3 cm; Wt 82.2 kg
[~2023-02-28 08:32] MED LIST changes: +ACETAMINOPHEN TAB 650MG DOSE (2X325MG) PO ONE; +VEDOLIZUMAB 300 MG in NS 250 ML IV ONE; +diphenhydrAMINE 25MG CAP PO ONE
[2023-02-28 08:40] VITALS: BP 119/80; O2SAT 97
[2023-02-28 09:29] VITALS: BP 101/58; O2SAT 98
== END 2023-02-28 09:30 ==
LOC: M INFU 08:32
PROVIDERS: ATTEND Internal Medicine Gastroenterology
DX: K51.90 Ulcerative colitis, unspecified, without complications (principal)
CPT/HCPCS: 96365; J3380

== ENCOUNTER 2023-05-02 08:07 | Outpatient (CLI) | payer BC ==
[~2023-05-02] VITALS: Ht 172.7 cm; Wt 83.1 kg
[2023-05-02 08:00] VITALS: BP 138/79; O2SAT 95
[2023-05-02 09:30] VITALS: BP 126/78; O2SAT 97
== END 2023-05-02 09:30 | disposition home or self-care (01) ==
LOC: M INFU 08:07
PROVIDERS: ATTEND Internal Medicine Gastroenterology
DX: K51.90 Ulcerative colitis, unspecified, without complications (principal)
CPT/HCPCS: 96365; J3380

== ENCOUNTER → 2023-06-27 | Outpatient (CLI) | payer BC ==
[~2023-06-27] VITALS: Ht 172.7 cm; Wt 83.1 kg
[2023-06-27 08:45] VITALS: BP 120/75; O2SAT 96
[2023-06-27 10:00] VITALS: BP 126/88; O2SAT 97
== END ==
LOC: M INFU 08:32
PROVIDERS: ATTEND Internal Medicine Gastroenterology
DX: K51.90 Ulcerative colitis, unspecified, without complications (principal)

== ENCOUNTER → 2023-07-29 | Outpatient (REF) | payer BC ==
[~2023-07-29] MED LIST changes: -ACETAMINOPHEN TAB 650MG DOSE (2X325MG) PO ONE; -VEDOLIZUMAB 300 MG in NS 250 ML IV ONE; -diphenhydrAMINE 25MG CAP PO ONE
[2023-07-29 13:31] LABS: PERCENT SATURATION 17.7 % (19.7-50.0)
== END ==
LOC: M LAB REF 12:41
PROVIDERS: ATTEND Internal Medicine
DX: D45 Polycythemia vera (principal)

== ENCOUNTER → 2023-08-09 | Outpatient (REF) ==
[2023-08-09 15:59] LABS: RSV AMPLIFICATION NEGATIVE (NEGATIVE)
== END ==
LOC: M EMP 12:18
PROVIDERS: ATTEND Family Medicine
DX: Z20.822 Contact with and (suspected) exposure to COVID-19 (principal)

== ENCOUNTER 2023-08-18 09:54 | Emergency (ER) | payer BC ==
[~2023-08-18] VITALS: Ht 180.3 cm; Wt 88.0 kg
[2023-08-18] MEDS ORDERED: NS 1,000 ML IV ONE (10:30)
[2023-08-18 10:53] LABS: BASO # 0.1 10^3/uL (0.0-0.2); BASO % 1.2 % (0.0-1.0); EOS # 0.2 10^3/uL (0.0-0.5); EOS % 2.1 % (0.0-3.0); HEMATOCRIT 45.8 % (42.0-52.0); HEMOGLOBIN 15.3 g/dl (13.5-17.5); LYMPH # 2.4 10^3/uL (1.5-5.0); LYMPH % 23.1 % (24.0-44.0); MEAN CORPUSCULAR HEMOGLOBIN 32.8 pg (27.0-33.0); MEAN CORPUSCULAR HGB CONC 33.4 g/dl (32.0-36.5); MEAN CORPUSCULAR VOLUME 98.1 fl (80.0-96.0); MONO % 16.9 % (2.0-8.0); NEUTROPHILS # 5.8 10^3/uL (1.5-8.5); NEUTROPHILS % 56.4 % (36.0-66.0); PLATELET COUNT, AUTOMATED 244 10^3/uL (150-450); RED BLOOD COUNT 4.67 10^6/uL (4.30-6.10); WHITE BLOOD COUNT 10.3 10^3/uL (4.0-10.0)
[2023-08-18] MEDS ORDERED: ACET-907 PO (10:53)
[2023-08-18] MEDS ORDERED: ENTY1INJ IV (10:53)
[2023-08-18] MEDS ORDERED: FERR32TA (10:53)
[2023-08-18] MEDS ORDERED: VITA500T40 (10:53)
[2023-08-18 11:18] LABS: MONO # 1.8 10^3/uL (0.0-0.8)
[2023-08-18 11:20] LABS: CPK CREATINE PHOSPHOKINASE 94 U/L (46-171)
[2023-08-18 11:21] LABS: ALBUMIN 3.7 G/DL (3.2-5.2); ALKALINE PHOSPHATASE 65 U/L (46-116); ALT/SGPT 23 U/L (7.0-40); AST/SGOT 18 U/L (<34); BILIRUBIN,DIRECT 0.2 MG/DL (<0.4); BILIRUBIN,TOTAL 0.5 MG/DL (0.3-1.2); BLOOD UREA NITROGEN 10 MG/DL (9-23); CARBON DIOXIDE LEVEL 26 MMOL/L (20-31); CHLORIDE LEVEL 105 MMOL/L (98-107); CK-MB VALUE MASS < 1.0 NG/ML (<3.6); CREATININE FOR GFR 1.26 MG/DL (0.70-1.30); GLOMERULAR FILTRATION RATE > 60.0 (>56); GLUCOSE, FASTING 87 MG/DL (60-100); MB/CK RELATIVE INDEX 1.06 (< OR =4); POTASSIUM SERUM 4.3 MMOL/L (3.5-5.1); SODIUM LEVEL 138 MMOL/L (136-145); THYROXINE (T4) 6.9 UG/DL (4.5-10.9); TOTAL PROTEIN 6.7 G/DL (5.7-8.2)
[2023-08-18 11:23] LABS: THYROID STIMULATING HORMONE 2.081 uIU/ML (0.55-4.78)
[2023-08-18 12:00] VITALS: BP 144/88; O2SAT 97
[2023-08-18 12:24] VITALS: TEMP 96.7
[2023-08-18] MEDS ORDERED: BENZ-18 PO (14:50)
== END 2023-08-18 12:25 | disposition home or self-care (01) ==
LOC: M ED 09:54
DX: K50.90 Crohn's disease, unspecified, without complications (principal); R19.7 Diarrhea, unspecified; B34.8 Other viral infections of unspecified site; F17.200 Nicotine dependence, unspecified, uncomplicated; Z79.899 Other long term (current) drug therapy

== ENCOUNTER 2023-08-22 08:30 | Outpatient (CLI) | payer BC ==
[~2023-08-22] VITALS: Ht 180.3 cm; Wt 96.6 kg
[~2023-08-22 08:30] MED LIST changes: +ACET-907 PO; +ACETAMINOPHEN TAB 650MG DOSE (2X325MG) PO ONE; +BENZ-18 PO; +ENTY1INJ IV; +FERR32TA; +VEDOLIZUMAB 300 MG in NS 250 ML IV ONE; +VITA500T40; +diphenhydrAMINE 25MG CAP PO ONE
[2023-08-22 08:39] VITALS: BP 132/92; TEMP 96.9; O2SAT 96
[2023-08-22 09:50] VITALS: BP 137/95; O2SAT 98
== END 2023-08-22 09:50 | disposition home or self-care (01) ==
LOC: M INFU 08:30
PROVIDERS: ATTEND Internal Medicine Gastroenterology
DX: K51.90 Ulcerative colitis, unspecified, without complications (principal)
CPT/HCPCS: 96365; J3380

== ENCOUNTER 2023-10-24 08:21 | Outpatient (CLI) | payer BC ==
[~2023-10-24] VITALS: Ht 180.3 cm; Wt 85.5 kg
[~2023-10-24 08:21] MED LIST changes: -VEDOLIZUMAB 300 MG in NS 250 ML IV ONE
[2023-10-24 08:30] VITALS: BP 134/98; O2SAT 97
[2023-10-24] MEDS: VEDOLIZUMAB 300 MG in NS 250 ML IV ONE (09:15)
[2023-10-24 09:53] VITALS: BP 132/94; O2SAT 98
== END 2023-10-24 08:30 ==
LOC: M INFU 08:21
PROVIDERS: ATTEND Internal Medicine Gastroenterology
DX: K51.90 Ulcerative colitis, unspecified, without complications (principal)
CPT/HCPCS: 96365; J3380

== ENCOUNTER → 2023-11-29 | Outpatient (REF) ==
[~2023-11-29] MED LIST changes: -ACETAMINOPHEN TAB 650MG DOSE (2X325MG) PO ONE; -diphenhydrAMINE 25MG CAP PO ONE
[2023-11-29 14:18] LABS: RSV AMPLIFICATION NEGATIVE (NEGATIVE)
== END ==
LOC: M EMP 14:02
PROVIDERS: ATTEND Family Medicine
DX: Z01.89 Encounter for other specified special examinations (principal)

== ENCOUNTER 2023-12-03 14:49 | Emergency (ER) | payer BC ==
[~2023-12-03] VITALS: Ht 180.3 cm; Wt 85.5 kg
[2023-12-03] MEDS: ACETAMINOPHEN 500 MG TAB PO ONE (15:07)
[2023-12-03 15:44] LABS: BLOOD UREA NITROGEN 13 MG/DL (9-23); CALCIUM LEVEL 8.6 MG/DL (8.5-10.1); CARBON DIOXIDE LEVEL 28 MMOL/L (20-31); CHLORIDE LEVEL 107 MMOL/L (98-107); GLOMERULAR FILTRATION RATE > 60.0 (>56); GLUCOSE, FASTING 99 MG/DL (60-100); POTASSIUM SERUM 4.3 MMOL/L (3.5-5.1); SODIUM LEVEL 139 MMOL/L (136-145)
[2023-12-03 15:58] VITALS: BP 120/76; TEMP 97.1; O2SAT 98
== END 2023-12-03 16:09 | disposition home or self-care (01) ==
LOC: M ED 14:49
DX: R10.32 Left lower quadrant pain (principal); Z79.84 Long term (current) use of oral hypoglycemic drugs; Z79.899 Other long term (current) drug therapy; Z79.620 Long term (current) use of immunosuppressive biologic

== ENCOUNTER 2023-12-19 08:25 | Outpatient (CLI) | payer BC ==
[~2023-12-19] VITALS: Ht 180.3 cm; Wt 86.3 kg
[2023-12-19 08:28] VITALS: BP 104/66; O2SAT 90
[2023-12-19] MEDS ORDERED: diphenhydrAMINE 25MG CAP PO ONE (08:30)
[2023-12-19] MEDS ORDERED: ACETAMINOPHEN TAB 650MG DOSE (2X325MG) PO ONE (08:30)
[2023-12-19] MEDS: VEDOLIZUMAB 300 MG in NS 250 ML IV ONE (08:44)
[2023-12-19 09:23] VITALS: BP 167/95; O2SAT 99
== END 2023-12-19 09:25 ==
LOC: M INFU 08:25
PROVIDERS: ATTEND Internal Medicine Gastroenterology
DX: K51.919 Ulcerative colitis, unspecified with unspecified complications (principal)
CPT/HCPCS: 96365; J3380

== ENCOUNTER → 2024-01-13 | Outpatient (CLI) | payer OTHER | LOC: M RAD 07:31 | PROVIDERS: ATTEND Physician Assistant | DX: M54.14 Radiculopathy, thoracic region (principal) ==

== ENCOUNTER 2024-02-13 08:10 | Outpatient (CLI) | payer BC ==
[~2024-02-13] VITALS: Ht 180.3 cm; Wt 86.4 kg
[2024-02-13 08:10] VITALS: BP 142/73; O2SAT 95
[~2024-02-13 08:10] MED LIST changes: +ONDA-282 PO; -ONDA4TAB6 PO
[2024-02-13] MEDS ORDERED: ACETAMINOPHEN TAB 650MG DOSE (2X325MG) PO ONE (08:30)
[2024-02-13] MEDS ORDERED: diphenhydrAMINE 25MG CAP PO ONE (08:30)
[2024-02-13] MEDS: VEDOLIZUMAB 300 MG in NS 250 ML IV ONE (08:38)
[2024-02-13 09:15] VITALS: BP 128/82; O2SAT 97
== END 2024-02-13 09:15 | disposition home or self-care (01) ==
LOC: M INFU 08:10
PROVIDERS: ATTEND Internal Medicine Gastroenterology
DX: K51.90 Ulcerative colitis, unspecified, without complications (principal)
CPT/HCPCS: 96365; J3380

== ENCOUNTER → 2024-02-21 | Outpatient (CLI) | payer BC | LOC: M LAB 11:45 | PROVIDERS: ATTEND Internal Medicine | DX: Z02.1 Encounter for pre-employment examination (principal); Z53.9 Procedure and treatment not carried out, unspecified reason ==

== ENCOUNTER → 2024-02-21 | Outpatient (REF) | LOC: M LAB 11:47 | PROVIDERS: ATTEND Family Medicine | DX: Z02.89 Encounter for other administrative examinations (principal) ==

== ENCOUNTER → 2024-02-23 | Outpatient (REF) | payer BC | LOC: M LAB REF 08:21 | PROVIDERS: ATTEND Internal Medicine | DX: Z02.1 Encounter for pre-employment examination (principal) ==